=== PATIENT | male | born 1960 | race African-American/Black ===

== ENCOUNTER 2024-06-16 18:38 | Inpatient (IN) | payer OTHER ==
[2024-06-16] MEDS ORDERED: ONDANSETRON 4 MG/2 ML VIAL ONE (18:50)
[2024-06-16] MEDS ORDERED: ASPIRIN 81 MG CHEWABLE TABLET ONE (18:50)
[2024-06-16] MEDS ORDERED: MORPHINE 4 MG/ML SYR ONE (18:50)
[2024-06-16 19:02] LABS: Absolute Eosinophils 0.1 K/uL (0-0.5); Absolute Lymphocytes (CBC) 2.5 K/uL (0.7-4.9); Absolute Monocytes 0.4 K/uL (0.1-1.3); Absolute Neutrophil 1.9 K/uL (1.8-8.0); Basophils % 0.6 % (0-1.3); Eosinophils % 2.2 % (0-4.4); Hematocrit 43.2 % (39.6-49.0); Hemoglobin 14.7 g/dL (13.6-17.9); MCH 33.5 pg (27.0-35.0); MCHC 34.1 g/dL (32.0-36.0); MCV 98.3 fL (80-100); MPV 8.1 fL (7.6-11.3); Monocytes % 8.2 % (3.3-12.3); Nucleated Red Blood Cells % 0.2 % (0-0); Platelets 172 thou/uL (152-406); RBC Red Blood Cell Count 4.39 M/uL (4.33-5.43); Red Cell Distribution Width 13.5 % (12.1-15.2)
[2024-06-16 19:03] LABS: PT Prothrombin Time 11.7 SECONDS (9.4-12.5); Protime INR 1.05
[2024-06-16 19:25] LABS: Anion Gap 9.2 mEq/L (5.0-15.0); Troponin High Sensitivity 14.9 pg/mL (<58.9)
[2024-06-16 19:26] LABS: Potassium 4.2 mEq/L (3.5-5.1)
--- NOTE | 2024-06-16 19:30 | ER ---
Nurse's Notes [facility] Name: Reilly Preston Age: 64 yrs Sex: Male : 1960 Arrival Date: 06/16/2024 Time: 18:38 Bed 5 Private MD: Diagnosis: Chest pain, unspecified Presentation: 06/16 18:45 Chief complaint: Patient states: he has been having chest pain for a few months, and ap3 has been waiting for a heart cath. patient states the pain has been getting worse so he called the dr and they told him to come in. Coronavirus screen: At this time, the client does not indicate any symptoms associated with coronavirus-19. Ebola Screen: No symptoms or risks identified at this time. Initial Sepsis Screen: Does the patient meet any 2 criteria? No. Patient's initial sepsis screen is negative. Does the patient have a suspected source of infection? No. Patient's initial sepsis screen is negative. Risk Assessment: Do you want to hurt yourself or someone else? Patient reports no desire to harm self or others. Onset of symptoms is unknown. 18:45 Method Of Arrival: Ambulatory ap3 18:45 Acuity: CASANDRA 2 ap3 Triage Assessment: 18:48 General: Appears in no apparent distress. Behavior is calm, cooperative, appropriate ap3 for age. Pain: Complains of pain in chest Pain currently is 8 out of 10 on a pain scale. Neuro: Level of Consciousness is awake, alert, obeys commands, Oriented to person, place, time, situation. Cardiovascular: Patient's skin is warm and dry. Cardiovascular: Reports chest pain. Respiratory: Airway is patent Respiratory effort is even, unlabored, Respiratory pattern is regular, symmetrical. Historical: - Allergies: 18:47 No Known Allergies; ap3 - PMHx: 18:47 Arthritis; cervical fracture; Hypertensive disorder; neuropathy; spinal stenosis; ap3 Hypercholesterolemia; - Immunization history:: Client reports receiving the 2nd dose of the Covid vaccine, Flu vaccine is not up to date. - Infectious Disease History:: Denies. - Social history:: Smoking status: Patient reports the use of cigarette tobacco products, smokes one-half pack cigarettes per day, Patient uses alcohol, on a daily basis. Screenin:48 [facility] ED Fall Risk Assessment (Adult) History of falling in the last 3 months, ap3 including since admission No falls in past 3 months (0 pts) Confusion or Disorientation No (0 pts) Intoxicated or Sedated No (0 pts) Impaired Gait Yes (1 pt) Mobility Assist Device Used Yes (1 pt) Altered Elimination No (0 pt) Score/Fall Risk Level 0 - 2 = Low Risk Oriented to surroundings, Maintained a safe environment, Educated pt \T\ family on fall prevention, incl call for assistance when getting out of bed, Assessed \T\ reinforced patient's understanding of fall precautions, Hourly rounding (assess needs \T\ fall precautionary measures) done, Used ambulatory aids as needed (educated on \T\ assisted with), Used gait belt as appropriate. Abuse screen: Denies threats or abuse. Nutritional screening: No deficits noted. Tuberculosis screening: No symptoms or risk factors identified. Assessment: 19:02 General: Appears in no apparent distress. Behavior is cooperative, appropriate for age, bp anxious. Pain: Complains of pain in chest. Cardiovascular: Rhythm is sinus rhythm. 21:03 Reassessment: Patient appears in no apparent distress at this time. Patient and/or al5 family updated on plan of care and expected duration. Pain level reassessed. Patient is alert, oriented x 3, equal unlabored respirations, skin warm/dry/pink. Pain: Denies pain. Neuro: Level of Consciousness is awake, alert, obeys commands, Oriented to person, place, time, situation. Cardiovascular: Patient's skin is warm and dry. Respiratory: Airway is patent Respiratory effort is even, unlabored, Respiratory pattern is regular, symmetrical. GI: No signs and/or symptoms were reported involving the gastrointestinal system. : No signs and/or symptoms were reported regarding the genitourinary system. EENT: No signs and/or symptoms were reported regarding the EENT system. Derm: Skin is intact, Skin is pink, warm \T\ dry. normal. Musculoskeletal: No signs and/or symptoms reported regarding the musculoskeletal system. Vital Signs: 18:45 BP 123 / 90; Pulse 86; Resp 17; Temp 97.4; Pulse Ox 94% on R/A; Weight 115.67 kg; ap3 Height 6 ft. 0 in. ; Pain 8/10; 19:02 BP 121 / 78; Pulse 84; Resp 16; Pulse Ox 93% ; bp 19:30 BP 128 / 86; Pulse 78; Resp 17; Pulse Ox 96% on R/A; al5 20:03 BP 121 / 76; Pulse 80; Resp 16; Pulse Ox 95% ; Pain 0/10; dd2 20:30 BP 109 / 72; Pulse 74; Resp 16; Pulse Ox 97% on R/A; al5 21:00 BP 115 / 93; Pulse 73; Resp 17; Pulse Ox 96% on R/A; al5 18:45 Body Mass Index 34.58 (115.67 kg, 182.88 cm) ap3 18:45 Pain Scale: Adult ap3 20:03 Pain Scale: Adult dd2 ED Course: 18:38 Patient arrived in ED. ap3 18:43 Cj Cosme MD is Attending Physician. ec2 18:47 Triage completed. ap3 18:47 Ryan Carcamo, SHANT is Primary Nurse. bp 18:49 Arm band placed on right wrist. ap3 18:53 Initial lab(s) drawn, by me, sent to lab. Inserted saline lock: 20 gauge in right bp forearm, using aseptic technique. Blood collected. Flushed with 10 mL NS. 19:02 EKG done, by ED staff, reviewed by Cj Cosme MD. bp 19:03 Patient has correct armband on for positive identification. Bed in low position. Call bp light in reach. 19:29 Jacinto Hooks MD is Hospitalizing Provider. ec2 19:42 XRAY Chest (1 view) In Process Unspecified. EDMS 21:03 Lights dimmed. Warm blanket given. patient placed in gown, non slip socks given. al5 updated on status of care.. 21:04 Provided Education on: plan of care, need for admission. al5 21:04 No provider procedures requiring assistance completed. Patient admitted, IV remains in al5 place. 21:50 Repeat lab(s) drawn. by me, sent to lab. ty Administered Medications: 18:58 Drug: Aspirin PO Chewable Tablet 324 mg PO once; 81 mg tablets x 4 Route: PO; hb 21:05 Follow up: Response: No adverse reaction; Pain is decreased al5 18:58 Drug: morphine IVP or IV 4 mg IVP once over 4 mins Route: IVP; Infused Over: 4 mins; hb Site: right forearm; 19:13 Follow up: Response: No adverse reaction dd2 18:58 Drug: Ondansetron IVP 4 mg IVP once; over 2 minutes Route: IVP; Site: right forearm; hb 19:13 Follow up: Response: No adverse reaction dd2 Medication: 21:04 VIS not applicable for this client. al5 Outcome: 19:29 Decision to Hospitalize by Provider. ec2 23:20 Admitted to Med/surg accompanied by tech, via wheelchair, with chart, dd2 23:20 Condition: stable 23:20 Instructed on the need for admit, 23:21 Patient left the ED. dd2 Signatures: Dispatcher [employer] EDTere Pardo RN RN Ryan Faith RN RN bp Anny Pitt RN RN ap3 Cj Cosme MD MD ec2 Roberto Wren Amanda, RN RN al5 RICHARD ZAVALA RN RN dd2
--- NOTE | 2024-06-16 19:30 | EDPHYS ---
Physician Documentation [facility] Name: Reilly Preston Age: 64 yrs Sex: Male : 1960 Arrival Date: 06/16/2024 Time: 18:38 Bed 5 Private MD: ED Physician Cj Cosme HPI: 06/16 19:03 This 64 yrs old Black Male presents to ER via Ambulatory with complaints of Chest Pain. ec2 19:03 Patient arrives today for evaluation of chest pain. States he has a history of CAD and ec2 is supposed undergo a heart catheterization. Patient reports he is having worsening chest pain which is what prompted evaluation today.. Historical: - Allergies: 18:47 No Known Allergies; ap3 - PMHx: 18:47 Arthritis; cervical fracture; Hypertensive disorder; neuropathy; spinal stenosis; ap3 Hypercholesterolemia; - Immunization history:: Client reports receiving the 2nd dose of the Covid vaccine, Flu vaccine is not up to date. - Infectious Disease History:: Denies. - Social history:: Smoking status: Patient reports the use of cigarette tobacco products, smokes one-half pack cigarettes per day, Patient uses alcohol, on a daily basis. ROS: 19:03 Constitutional: as per hpi ec2 Exam: 19:03 Constitutional: GEN: NAD Head: atraumatic Eyes: EOMI Ears: External ears are ec2 normal. CV: regular rate LUNGS: no respiratory distress ABD: non-distended SKIN: no evidence of rashes MSK: no evidence of trauma Vital Signs: 18:45 BP 123 / 90; Pulse 86; Resp 17; Temp 97.4; Pulse Ox 94% on R/A; Weight 115.67 kg; ap3 Height 6 ft. 0 in. ; Pain 8/10; 19:02 BP 121 / 78; Pulse 84; Resp 16; Pulse Ox 93% ; bp 19:30 BP 128 / 86; Pulse 78; Resp 17; Pulse Ox 96% on R/A; al5 20:03 BP 121 / 76; Pulse 80; Resp 16; Pulse Ox 95% ; Pain 0/10; dd2 20:30 BP 109 / 72; Pulse 74; Resp 16; Pulse Ox 97% on R/A; al5 21:00 BP 115 / 93; Pulse 73; Resp 17; Pulse Ox 96% on R/A; al5 18:45 Body Mass Index 34.58 (115.67 kg, 182.88 cm) ap3 18:45 Pain Scale: Adult ap3 20:03 Pain Scale: Adult dd2 MDM: 18:46 Medical Screening Exam initiated ec2 19:03 Data reviewed: vital signs. ED course: Patient arrives today for evaluation of chest ec2 pain with a history of CAD. Examination remarkable for nontoxic individuals otherwise in no acute distress. EKG obtained, independently reviewed and interpreted by me, shows normal sinus rhythm, rate of 87, no acute ST segment elevations, intervals are nonactionable. . 19:28 ED course: Patient with reassuring workup, patient with significant risk factors, ec2 scheduled to have outpatient cath with Dr. Cagle, will admit for further cardiac evaluation. Discussed with hospitalist, pending admission.. 06/16 18:47 Order name: Basic Metabolic Panel; Complete Time: 19:28 ec2 06/16 18:47 Order name: CBC with Diff; Complete Time: 19:20 ec2 06/16 18:47 Order name: NT PRO-BNP; Complete Time: 19:28 ec2 06/16 18:47 Order name: PT-INR; Complete Time: 19:20 ec2 06/16 18:47 Order name: Troponin HS; Complete Time: 19:28 ec2 06/16 20:18 Order name: Urinalysis w/ reflexes EDMS 06/16 20:18 Order name: CBC with Automated Diff EDMS 06/16 20:18 Order name: CBC with Automated Diff EDMS 06/16 20:18 Order name: Comprehensive Metabolic Panel EDMS 06/16 20:18 Order name: Comprehensive Metabolic Panel EDMS 06/16 20:18 Order name: Troponin High Sensitivity EDMS 06/16 20:18 Order name: Troponin High Sensitivity EDMS 06/16 20:18 Order name: Troponin High Sensitivity EDMS 06/16 20:18 Order name: Troponin High Sensitivity EDMS 06/16 18:47 Order name: XRAY Chest (1 view); Complete Time: 20:03 ec2 06/16 18:47 Order name: EKG; Complete Time: 18:47 ec2 06/16 20:18 Order name: CONS Physician Consult EDMS 06/16 18:47 Order name: Cardiac monitoring; Complete Time: 18:53 ec2 06/16 18:47 Order name: EKG - Nurse/Tech; Complete Time: 19:02 ec2 06/16 18:47 Order name: IV Saline Lock; Complete Time: 18:53 ec2 06/16 18:47 Order name: Labs collected and sent; Complete Time: 18:53 ec2 06/16 18:47 Order name: O2 Per Protocol; Complete Time: 18:50 ec2 06/16 18:47 Order name: O2 Sat Monitoring; Complete Time: 18:50 ec2 Administered Medications: 18:58 Drug: Aspirin PO Chewable Tablet 324 mg PO once; 81 mg tablets x 4 Route: PO; hb 21:05 Follow up: Response: No adverse reaction; Pain is decreased al5 18:58 Drug: morphine IVP or IV 4 mg IVP once over 4 mins Route: IVP; Infused Over: 4 mins; hb Site: right forearm; 19:13 Follow up: Response: No adverse reaction dd2 18:58 Drug: Ondansetron IVP 4 mg IVP once; over 2 minutes Route: IVP; Site: right forearm; hb 19:13 Follow up: Response: No adverse reaction dd2 Disposition Summary: 06/16/24 19:29 Hospitalization Ordered Notes: Hospitalization Status: Inpatient Admission ec2 Provider: Jacinto Hooks ec2 Location: Telemetry/MedSurg (Inpatient) ec2 Condition: Stable ec2 Problem: an ongoing problem ec2 Symptoms: have improved ec2 Bed/Room Type: Standard ec2 Room Assignment: [facility](06/16/24 22:26) [facility] Diagnosis - Chest pain, unspecified ec2 Forms: - Medication Reconciliation Form ec2 - SBAR form ec2 - Leadership Thank You Letter ec2 Signatures: Dispatcher [employer] EDTere Pardo RN RN Anny Pitt RN RN ap3 Cj Cosme MD MD 2 Izzy Echeverria [facility] Anny Franks RN5 RICHARD ZAVALA RN dd2 Corrections: (The following items were deleted from the chart) 19:08 19:03 ED course: Patient arrives today for evaluation of chest pain with a history of ec2 CAD. Examination remarkable for nontoxic individuals otherwise in no acute distress. EKG obtained, independently reviewed and interpreted by me, shows normal sinus rhythm, rate of 87, no acute ST segment ovation's, intervals are nonactionable. . ec2 22:26 19:29 ec2 kmf
--- NOTE | 2024-06-16 19:57 | RAD REPORT ---
EXAMINATION: ONE VIEW CHEST XR CLINICAL INDICATION: Male, 64 years old.,CHEST PAIN TECHNIQUE: Frontal chest projection is submitted. Examination is limited by patient positioning and t echnique. COMPARISON: 05/21/2024 FINDINGS: The lungs are well inflated and clear. No pneumothorax or sizable effusion. The heart is normal in s ize. IMPRESSION: No acute intrathoracic abnormalities.
--- NOTE | 2024-06-16 19:58 | P.HP ---
Certification for Inpatient Patient admitted to: Observation With expected LOS: <2 Midnights Practitioner: I am a practitioner with admitting privileges, knowledge of patient current condition, hospital course, and medical plan of care. Services: Services provided to patient in accordance with Admission requirements found in Title 42 Section 412.3 of the Code of Federal Regulations Patient History Date of Service: 06/17/24 Reason for admission: Chest Pain History of Present Illness: 64 yo Male with past medical history of hypertension, hyperlipidemia, arthritis, spinal stenosis, neuropathy, cervical neck fracture who was brought to ER with chest discomfort which has been going on for the last 2 weeks and has been progressively worsening. Pain is worse with movements and activities. Pain is located in retrosternal. Pressure-like feeling. No radiation. Not associated with any diaphoresis. Denies any nausea vomiting or diarrhea. Patient was recently admitted to the hospital with similar symptoms and has been seen by the environmental field office manager who performed an echo and stress test as per the family and the stress test was positive and was recommended left heart catheterization. They were waiting for insurance approval. But he started having chest discomfort and was worsening over the last 2 days and has been progressively worsened and was brought to ER. Patient was seen in the ER and had an EKG which showed no acute ischemic changes and initial troponin was negative. Patient is being admitted for further management and cardiology evaluation and possible left heart catheterization while inpatient Allergies No Known Allergies Allergy (Verified 06/10/24 08:43) Home medications list reviewed: Yes Home Medications: Celecoxib 200 mg PO DAILY 05/21/24 Hydrocodone 10/APAP 325 [[place] 10/325*] 1 tab PO BID PRN 05/21/24 Pregabalin [Lyrica*] 50 mg PO BID 05/21/24 Spironolactone [Aldactone*] 25 mg PO DAILY 05/21/24 Aspirin [Aspirin EC 81 MG] 81 mg PO DAILY #30 tab 05/22/24 Atorvastatin Calcium [Lipitor] 40 mg PO BEDTIME #30 tab 05/22/24 - Past Medical/Surgical History Diabetic: No Past Medical History: Reviewed- Non-Contributory -: Hypertension, hypertension Past Surgical History: Reviewed- Non-Contributory -: spine surgery -: right knee repair - Family History Family History: Reviewed- Non-Contributory - Social History Smoking Status: Current every day smoker Alcohol use: Yes CD- Drugs: Yes Caffeine use: Yes Review of Systems 10-point ROS is otherwise unremarkable Physical Examination - Vital Signs Temperature: 98.2 F Blood Pressure: 136/78 Pulse: 76 Respirations: 18 Pulse Ox (%): 94 - Physical Exam General: Alert, In no apparent distress, Oriented x3 HEENT: Atraumatic, Normocephalic Neck: Supple Respiratory: Clear to auscultation bilaterally, Normal air movement Cardiovascular: Normal pulses, Regular rate/rhythm, Normal S1 S2 Capillary refill: <2 Seconds Gastrointestinal: Soft and benign, W/out hepatosplenomegaly Musculoskeletal: No clubbing, No swelling Integumentary: No rashes, No breakdown Neurological: Normal speech, Normal strength at 5/5 x4 extr, Cranial nerves 3-12 intact, Normal reflexes 2+ Lymphatics: No axilla or inguinal lymphadenopathy - Studies Laboratory Data (last 24 hrs) 06/16/24 06/16/24 06/16/24 18:53 18:53 18:53 WBC 5.00 Hgb 14.7 Hct 43.2 Plt Count 172 PT 11.7 INR 1.05 Sodium 139 Potassium 4.2 BUN 17 Creatinine 0.83 Glucose 92 Assessment and Plan - Plan Chest Pain to r/o ACS Will trend cardiac enzymes Will monitor telemetry Started on aspirin and statin Will get an echocardiogram Cardiology consult Hypertension Antihypertensives titrated Continue home medications and titrate as needed Hyperlipidemia Continue statin GI/DVT prophylaxis Advanced directive full code Discharge Plan: Home Plan to discharge in: 48 Hours - Advance Directives Does patient have a Living Will: No Does patient have a Durable POA for Healthcare: No - Code Status/Comfort Care Code Status: Full Code Time Spent Managing Pts Care (In Minutes): 48
[2024-06-16] MEDS ORDERED: ONDANSETRON 4 MG/2 ML VIAL IV PRN (20:12)
[2024-06-16] MEDS ORDERED: ACETAMINOPHEN 325 MG TABLET PO PRN (20:12)
[2024-06-16] MEDS ORDERED: HYDROCODONE/APAP 5/325 MG TAB PO PRN (20:16)
[2024-06-16 23:27] VITALS: BMI 34.5
[2024-06-16] MEDS: MORPHINE 2 MG/ML SYR IV PRN (23:42)
[2024-06-16] MEDS: ATORVASTATIN 40 MG TAB PO SCH (23:42)
[2024-06-17 05:55] LABS: Absolute Eosinophils 0.1 K/uL (0-0.5); Absolute Lymphocytes (CBC) 2.7 K/uL (0.7-4.9); Absolute Monocytes 0.4 K/uL (0.1-1.3); Absolute Neutrophil 1.7 K/uL (1.8-8.0); Basophils % 0.7 % (0-1.3); Eosinophils % 2.3 % (0-4.4); Hematocrit 39.1 % (39.6-49.0); Hemoglobin 13.5 g/dL (13.6-17.9); Lymphocytes % 54.8 % (15.3-44.8); MCH 33.6 pg (27.0-35.0); MCHC 34.5 g/dL (32.0-36.0); MCV 97.3 fL (80-100); MPV 8.3 fL (7.6-11.3); Monocytes % 8.4 % (3.3-12.3); Neutrophils % 33.8 % (41.7-73.7); Nucleated Red Blood Cells % 0.1 % (0-0); Platelets 164 thou/uL (152-406); RBC Red Blood Cell Count 4.02 M/uL (4.33-5.43); Red Cell Distribution Width 13.6 % (12.1-15.2)
[2024-06-17 06:07] LABS: Specific Gravity 1.011 (1.005-1.030); Urine Bilirubin NEGATIVE (Negative); Urine Blood Negative (Negative); Urine Clarity Clear (Clear); Urine Color Light-Yellow (Yellow); Urine Glucose NEGATIVE (Negative); Urine Ketones NEGATIVE (Negative); Urine Microscopic Reflex YN NO UMIC; Urine Nitrite NEGATIVE (Negative); Urine Protein NEGATIVE (Negative); Urine Urobilinogen Normal (Normal)
[2024-06-17 06:09] LABS: Albumin 3.1 g/dL (3.4-5.0); Anion Gap 5.1 mEq/L (5.0-15.0); Bilirubin Total 0.4 mg/dL (0.2-1.0); Globulin 3.2 g/dL (2.3-3.5); Potassium 4.1 mEq/L (3.5-5.1); Protein, Total 6.3 g/dL (6.4-8.2)
[2024-06-17] MEDS: ASPIRIN EC 81 MG TAB PO SCH (08:33)
[2024-06-17] MEDS: ENOXAPARIN 40 MG/0.4 ML SQ SCH (08:33)
[2024-06-17 09:10] LABS: Atypical Lymphocytes 2 %; Band Neutrophils 60 % (0-1); Differential Total Cells Count 100; Lymphocytes 8 % (15-42); Monocytes 3 % (0-10); Platelet Estimate ADEQ; Platelets Clumped FEW; Segmented Neutrophils 27 % (40-80)
[2024-06-17 09:11] LABS: Blood Morphology Comment NOT SEEN (NOT SEEN)
--- NOTE | 2024-06-17 16:02 | P.CNS ---
Date of Consult: 06/17/24 Chief Complaint: Chest Pain History of Present Illness: Patient with PMH of HTN, HLD, has been having worsening chest pain for the last two months that got worse yesterday, pressure in nature, radiaiting to neck and back, patient was seen recently by jboss architect as outpatient and he had an abnormal stress test. Allergies No Known Allergies Allergy (Verified 06/10/24 08:43) Home medications list reviewed: Yes Home Medications: Celecoxib 200 mg PO DAILY 05/21/24 Hydrocodone 10/APAP 325 [[place] 10/325*] 1 tab PO BID PRN 05/21/24 Pregabalin [Lyrica*] 50 mg PO BID 05/21/24 Spironolactone [Aldactone*] 25 mg PO DAILY 05/21/24 Aspirin [Aspirin EC 81 MG] 81 mg PO DAILY #30 tab 05/22/24 Atorvastatin Calcium [Lipitor] 40 mg PO BEDTIME #30 tab 05/22/24 - Past Medical/Surgical History Diabetic: No -: Hypertension, hypertension -: spine surgery -: right knee repair - Social History Smoking Status: Current every day smoker Alcohol use: Yes CD- Drugs: Yes Caffeine use: Yes Review of Systems 10-point ROS is otherwise unremarkable Physical Examination Temp Pulse Resp BP Pulse Ox 97.6 F 62 18 97/58 L 97 06/17/24 12:00 06/17/24 12:00 06/17/24 12:00 06/17/24 12:00 06/17/24 12:00 General: Alert, In no apparent distress HEENT: Atraumatic, PERRLA, Mucous membr. moist/pink, EOMI, Sclerae nonicteric Neck: Supple, 2+ carotid pulse no bruit, No LAD, Without JVD or thyroid abnormality Respiratory: Clear to auscultation bilaterally, Normal air movement Cardiovascular: Regular rate/rhythm, Normal S1 S2 Gastrointestinal: Normal bowel sounds, No tenderness Musculoskeletal: No tenderness Integumentary: No rashes Neurological: Normal gait, Normal speech, Normal tone, Normal affect Lymphatics: No axilla or inguinal lymphadenopathy Laboratory Data (last 24 hrs) 06/16/24 06/16/24 06/16/24 18:53 18:53 18:53 WBC 5.00 Hgb 14.7 Hct 43.2 Plt Count 172 PT 11.7 INR 1.05 Sodium 139 Potassium 4.2 BUN 17 Creatinine 0.83 Glucose 92 - Problems (1) HLD (hyperlipidemia) Current Visit: Yes Status: Acute Plan: continue lipitor 40 mg daily (2) Chest pain Current Visit: No Status: Acute Plan: concern for unstable angina with abnormal stress test showing mild small reversible apical wall perfusion defect. NPO after midnight for coronary angiogram in am ASA 81 mg daily Lipitor 40 mg daily (3) Hypertension Current Visit: No Status: Acute Plan: BP is soft, continue to monitor.
[2024-06-18] MEDS: FENTANYL CITR 100 MCG/2 ML ONE (07:14)
[2024-06-18] MEDS: MIDAZOLAM HCL 2 MG/2 ML INJ ONE (07:14)
[2024-06-18] MEDS ORDERED: HEPARIN 10,000 UNIT/10 ML VIAL IV ONE (07:19)
[2024-06-18] MEDS ORDERED: HEPA 1000U/500MLS 2,000 UNIT/1,000 ML BAG IV ONE (07:19)
[2024-06-18] MEDS ORDERED: NITROGLYCERIN/D5W 50 MG/250 ML BTL IV ONE (07:19)
[2024-06-18] MEDS ORDERED: LIDOCAINE 1% 20 ML MDV ONE (07:19)
[2024-06-18] MEDS ORDERED: ATROPINE SULF 1 MG/10 ML SYR IV ONE (07:20)
[2024-06-18] MEDS ORDERED: CLOPIDOGREL 75 MG TABLET ONE (07:20)
[2024-06-18] MEDS ORDERED: HEPARIN 5000 UNIT/ML 1 ML VIAL ONE (07:20)
[2024-06-18] MEDS ORDERED: TICAGRELOR 90 MG TABLET PO ONE (07:20)
[2024-06-18] MEDS: NA CHLORIDE 0.9% 500 ML ONE (07:21)
[2024-06-18] MEDS ORDERED: ASPIRIN 325 MG TAB ONE (07:21)
[2024-06-18] MEDS ORDERED: ASPIRIN 81 MG CHEWABLE TABLET ONE (07:55)
--- NOTE | 2024-06-18 08:51 | P.PN ---
Subjective Date of Service: 06/18/24 Chief Complaint: Chest Pain Subjective: No new changes, No C/O voiced, Tolerating diet, Ambulating, Improving Review of Systems 10-point ROS is otherwise unremarkable Physical Examination - Vital Signs Temperature: 97.9 F Blood Pressure: 140/83 Pulse: 67 Respirations: 18 Pulse Ox (%): 99 - Physical Exam General: Alert, In no apparent distress HEENT: Atraumatic, PERRLA, EOMI Neck: Supple, JVD not distended Respiratory: Clear to auscultation bilaterally, Normal air movement Cardiovascular: Regular rate/rhythm, Normal S1 S2 Gastrointestinal: Normal bowel sounds, No tenderness Musculoskeletal: No tenderness Integumentary: No rashes Neurological: Normal speech, Normal tone, Normal affect Lymphatics: No axilla or inguinal lymphadenopathy - Studies Medications List Reviewed: Yes Assessment And Plan - Current Problems (Diagnosis) (1) HLD (hyperlipidemia) Current Visit: Yes Status: Acute Plan: continue lipitor 40 mg daily (2) Chest pain Current Visit: No Status: Acute Plan: concern for unstable angina with abnormal stress test showing mild small reversible apical wall perfusion defect. Coronary angiogram done today and shows ostial LAD 40% disease with mid RCA 30- 40% disease, medical management is recommended ASA 81 mg daily Lipitor 40 mg daily (3) Hypertension Current Visit: No Status: Acute Plan: BP is soft, continue to monitor.
[2024-06-18] MEDS ORDERED: ACETAMINOPHEN 325 MG TABLET PO PRN (10:16)
[2024-06-18] MEDS ORDERED: NITROGLYCERIN 0.4 MG/TAB SL PRN (10:16)
[2024-06-18] MEDS: NA CHLORIDE 0.9% 1,000 ML IV SCH (10:20)
[2024-06-18 11:27] VITALS: O2SAT 99
--- NOTE | 2024-06-18 11:55 | EKG ---
Test Date: 2024-06-16 Test Time: 19:00:19 Customer Account Executive: BP MEASUREMENT RESULTS: Intervals: Rate: 87 CT: 154 QRSD: 86 QT: 342 QTc: 411 [place]: P: 45 CT: 154 QRS: 71 T: -20 INTERPRETIVE STATEMENTS: Sinus rhythm ST & T wave abnormality, consider inferior ischemia Abnormal ECG Compared to ECG 05/21/2024 18:05:06 ST (T wave) deviation now present Possible ischemia now present Electronically Signed On 06-18-24 11:51:57 CDT by Jose Hamilton
--- NOTE | 2024-06-18 12:44 | OP ---
Date of Procedure: 06/18/2024 Surgeon: Jose Hamilton Procedures Performed: 1.Left heart catheterization. 2.Selective coronary angiogram. Indication For Procedure: Unstable angina, abnormal stress test. Complications: None. Estimated Blood Loss: Less than 50 cc. Access: Right iliac, closed by TR band. Sedation: X20 minutes with 1 of Versed and 25 of fentanyl. Description Of Procedure: After risks, benefits, and alternatives were explained to the patient, the patient agreed to proceed with the procedure and signed informed consent. The patient was brought b [facility] to the laborer general, prepped and draped in sterile fashion. Time-out was performed and sedation was administered. Next, the right radial access was obtained. A [place] 4 catheter was advanced over J-wi re to the LV cavity. LVEDP was obtained. Pullback did not show any gradient. Same catheter was use d for selective angiogram of the left and right coronary systems. Catheter was removed over a J-wire . Sheath was removed. TR band was applied. Hemostasis achieved and the patient was moved back to [facility] in stable condition. Findings: 1.Left main normal. 2.LAD, ostial 40% disease and mild luminal irregularities. 3.Left circ, mild luminal irregularities. 4.RCA, proximal 30% to 40% disease, tortuous artery with mid to distal mild luminal regularities. 5.LVEDP 14 mmHg. Assessment/plan: 1.Mild nonobstructive CAD. 2.Normal filling pressure. 3.We will continue medical management for CAD. JANINE/BREONNA Voice ID: [id number] Report ID: [id number]
--- NOTE | 2024-06-18 13:40 | P.PN ---
Subjective Date of Service: 06/17/24 Chief Complaint: Chest Pain Patient has no new complaint. Troponin trended negative He denies any shortness of breath. Physical Examination - Physical Exam General: Alert, In no apparent distress, Oriented x3 HEENT: Mucous membr. moist/pink, Sclerae nonicteric Neck: Supple, JVD not distended Respiratory: Clear to auscultation bilaterally, Normal air movement Cardiovascular: No edema, Regular rate/rhythm, Normal S1 S2 Gastrointestinal: Normal bowel sounds, Soft and benign, Non-distended, No tenderness Musculoskeletal: No swelling, No tenderness Integumentary: No rashes, No cyanosis Neurological: Normal strength at 5/5 x4 extr, Cranial nerves 3-12 intact - Studies Medications List Reviewed: Yes Assessment And Plan - Plan Physical examination General: Alert and oriented x3, NAD, HEENT: Conjunctiva not pale, anicteric sclera Neck: Supple, no elevated JVD Heart: Heart sounds 1 and 2 normal, regular rhythm, normal rate, no pedal edema Lungs: Clear to auscultation bilaterally, adequate breath sounds bilaterally, no rhonchi or crackles. Abdomen: Soft, nondistended, nontender, normal bowel sounds. Extremities: No tenderness, no deformity Skin: Normal skin turgor, no rash, no nodules or ulcers. Neuro: No focal motor deficit. Normal speech. Psychiatry: Normal mood, no agitation. Assessment and plan Chest Pain to r/o ACS Troponin trended negative Continue aspirin Continue statin and beta-deisy Echocardiogram is pending. Cardiology input appreciated. Patient is scheduled for cardiac catheterization tomorrow. Hypertension Continue home antihypertensives. Hyperlipidemia Continue statin GI/DVT prophylaxis Advanced directive: full code
--- NOTE | 2024-06-18 13:51 | P.DS ---
Admission Date: 06/16/24 Discharge Date: 06/18/24 Disposition: ROUTINE DISCHARGE Discharge Condition: FAIR Reason for Admission: Chest Pain Brief History of Present Illness: 64 yo Male with past medical history of hypertension, hyperlipidemia, arthritis, spinal stenosis, neuropathy, cervical neck fracture who was brought to ER with chest discomfort which has been going on for 2 weeks and has been progressively worsening. Pain worse with movements and activities. Patient was recently admitted to the hospital with similar symptoms and was seen by the corporate development officer who performed an echo. He also underwent stress test as outpatient. As per the family and the stress test result was reviewed by cardiology recommended left heart catheterization. The cardiac cath could not be done as scheduled because insurance had not approved it yet. He started experiencing more chest pain and therefore presented to the ER. Patient was seen in the ER and had an EKG which showed no acute ischemic changes and initial troponin was negative. Patient was admitted for further management. Hospital Course: Chest Pain Coronary artery disease Troponin trended negative Continued aspirin Continued statin. Patient had an episode of borderline hypotension so beta- blockers avoided. Patient seen by cardiology and cardiac catheterization performed. Patient noted to have mild to moderate coronary artery disease which did not warrant percutaneous intervention. Medical management recommended. Hyperlipidemia Continued statin. Chronic pain syndrome Resumed patient home medications on discharge. Vital Signs/Physical Exam: Temp Pulse Resp BP Pulse Ox 97.3 F 72 18 147/78 H 99 06/18/24 11:15 06/18/24 11:15 06/18/24 12:17 06/18/24 11:15 06/18/24 08:51 General: Alert, In no apparent distress, Oriented x3 HEENT: Mucous membr. moist/pink, Sclerae nonicteric Neck: Supple, JVD not distended Respiratory: Clear to auscultation bilaterally, Normal air movement Cardiovascular: No edema, Regular rate/rhythm, Normal S1 S2 Gastrointestinal: Normal bowel sounds, Soft and benign, Non-distended, No tenderness Musculoskeletal: No swelling Integumentary: No rashes, No cyanosis Neurological: Normal strength at 5/5 x4 extr, Cranial nerves 3-12 intact Laboratory Data at Discharge: WBC 5.00 thou/uL (4.3-10.9) 06/17/24 04:36 Hgb 13.5 g/dL (13.6-17.9) L D 06/17/24 04:36 Hct 39.1 % (39.6-49.0) L 06/17/24 04:36 Plt Count 164 thou/uL (152-406) 06/17/24 04:36 PT 11.7 SECONDS (9.4-12.5) 06/16/24 18:53 INR 1.05 06/16/24 18:53 Sodium 139 mEq/L (136-145) 06/17/24 04:36 Potassium 4.1 mEq/L (3.5-5.1) 06/17/24 04:36 BUN 14 mg/dL (7-18) 06/17/24 04:36 Creatinine 0.65 mg/dL (0.70-1.30) L 06/17/24 04:36 Glucose 93 mg/dL (74-106) 06/17/24 04:36 Total Bilirubin 0.4 mg/dL (0.2-1.0) 06/17/24 04:36 AST 28 U/L (15-37) 06/17/24 04:36 ALT 46 U/L (16-61) 06/17/24 04:36 Alkaline Phosphatase 32 U/L (45-117) L 06/17/24 04:36 Home Medications: Celecoxib 200 mg PO DAILY 05/21/24 Pregabalin [Lyrica*] 50 mg PO BID 05/21/24 Spironolactone [Aldactone*] 25 mg PO DAILY 05/21/24 Aspirin [Aspirin EC 81 MG] 81 mg PO DAILY #30 tab 05/22/24 Atorvastatin Calcium [Lipitor] 40 mg PO BEDTIME #30 tab 05/22/24 Diet: AHA Activity: Ad sheri Followup: Rosales Parra MD [Primary Care Provider] - Time spent managing pt's care (in minutes): 33
[2024-06-18 15:15] VITALS: BP 145/84; TEMP 97.2
== END 2024-06-18 16:14 | disposition home or self-care (01) | DRG 287 ==
LOC: ER 18:38 → ERHOLD 20:12 → 2ND 22:40
PROVIDERS: ADMIT Family Medicine; ATTEND Internal Medicine
PROC: B2111ZZ Fluoroscopy of Multiple Coronary Arteries using Low Osmolar Contrast (ICD-10-PCS; principal; 2024-06-18)
PROC: 4A023N7 Measurement of Cardiac Sampling and Pressure, Left Heart, Percutaneous Approach (ICD-10-PCS; 2024-06-18)
DX: I25.110 Atherosclerotic heart disease of native coronary artery with unstable angina pectoris (principal); I10 Essential (primary) hypertension; G89.4 Chronic pain syndrome; E78.00 Pure hypercholesterolemia, unspecified; F17.210 Nicotine dependence, cigarettes, uncomplicated; I25.10 Atherosclerotic heart disease of native coronary artery without angina pectoris; Z79.82 Long term (current) use of aspirin; Z79.899 Other long term (current) drug therapy
CPT/HCPCS: 36415; 71045; 76937; 80048; 80053; 81003; 83880; 84484; 85025; 85610; 93005; 93458; 96374; 96375; 99152; 99285; C1893; J0461; J1644; J1650; J2001; J2250; J2270; J2405; J3010; J7040; Q9966